=== PATIENT | female | born 1965 ===

== ENCOUNTER → 2022-12-23 | Outpatient (CLI) | payer BC ==
[2022-12-23 15:59] LABS: Basophils # (A) 0.01 X 10*3/uL (0.00-0.10); Basophils % (A) 0.3 %; Eosinophils # (A) 0.03 X 10*3/uL (0.04-0.35); Eosinophils % (A) 0.8 %; HCT 46.3 % (37.2-46.3); Immature Grans, Automated 0.3 %; Lymphocytes # (A) 2.13 X 10*3/uL (0.90-5.00); Lymphocytes % (A) 56.6 %; MCH 30.9 pg (27.0-32.0); MCHC 32.4 g/dL (32.0-37.0); MCV 95.3 fL (80.0-97.0); Mean Platelet Volume 10.8 fL (9.5-12.2); Monocytes # (A) 0.35 X 10*3/uL (0.20-1.00); Monocytes % (A) 9.3 %; NRBC Per 100 WBC 0 /100 WBCS (0.0-0.0); Neutrophils # (A) 1.23 X 10*3/uL (1.80-7.70); Neutrophils % (A) 32.7 %; Platelet Count 211 X 10*3/uL (140-440); RBC 4.86 X 10*6/uL (4.10-5.20); WBC 3.76 X 10*3/uL (4.50-10.00)
== END | disposition home or self-care (01) ==
LOC: LABPAT 10:29
PROVIDERS: ATTEND Obstetrics & Gynecology
DX: Z01.818 Encounter for other preprocedural examination (principal); N87.1 Moderate cervical dysplasia
CPT/HCPCS: 85025

== ENCOUNTER 2023-01-17 08:11 | Day surgery (SDC) | payer BC ==
[2023-01-12 14:01] VITALS: BMI 22.1
[~2023-01-17 08:11] MED LIST: Pre Op ABX Message 1 EACH MISC MISCELLANE ONE
[2023-01-17] MEDS ORDERED: ONDANSETRON 4 MG/2 ML VIAL IVP ONE (08:21)
[2023-01-17] MEDS ORDERED: DEXAMETHASONE SOD PHOSPHATE 4 MG/ML 1 ML VIAL IV ONE (08:21)
[2023-01-17] MEDS ORDERED: LACTATED RINGERS 1,000 ML IV SCH ×2 (08:21→12:00)
[2023-01-17] MEDS ORDERED: MIDAZOLAM 2 MG/2 ML VIAL IVP ONE (09:08)
[2023-01-17] MEDS ORDERED: SCOPOLAMINE 1 MG/72 HR PATCH TRANSDERM ONE (09:08)
[2023-01-17] MEDS ORDERED: LIDOCAINE 2% INJ 20 MG/ML (2 ML VIAL) ONE (09:39)
[2023-01-17] MEDS ORDERED: KETOROLAC 15 MG/ML 1 ML VIAL ONE (09:39)
[2023-01-17] MEDS ORDERED: PROPOFOL 10 MG/ML 20 ML VIAL IV ONE (09:39)
[2023-01-17] MEDS ORDERED: fentaNYL (PF) 50 MCG/ML 2 ML AMP ONE (09:39)
[2023-01-17] MEDS ORDERED: IODINE/POTASSIUM IODIDE 14 ML BOTTLE TOPICAL ONE (10:02)
[2023-01-17] MEDS ORDERED: FERRIC SUBSULFATE (MONSELS) JAR TOPICAL ONE (10:12)
--- NOTE | 2023-01-17 10:34 | P.OP ---
Date of Procedure: 01/17/23 Preoperative Diagnosis: Endocervical TONY-2 Postoperative Diagnosis: Same Procedure(s) Performed: #1. Cold knife cone Anesthesia: other (Gen. by LMA) Surgeon: Thomas Lange Estimated Blood Loss (ml): 5 IV fluids (ml): 300 Urine output (ml): 100 Pathology: other (Cervical cone) Condition: stable Disposition: PACU Operative Findings: The patient has a history of supracervical hysterectomy in the past. She did undergo colposcopy in the office demonstrating endocervical TONY-2. In the operating room, there was a small nonstaining area at the transformation zone along the entire posterior edge of the cervix. There was no ectocervical nonstaining tissue. A cone was taken to a depth of approximately 2 cm with a diameter of approximately 1.5 x 1.5 cm. All the nonstaining tissue was included in the specimen. Description of Procedure: The patient was prepped and draped in usual fashion after general anesthesia was administered by the anesthesiologist. A weighted speculum was placed on the anterior lip of the cervix grasped with a single-tooth tenaculum. The bladder was drained of approximately 100 mL of clear jerica urine. A cervical stay suture was placed from 10:00 to 8:00 at the cervical vaginal junction and from 2:00 to 4:00 at the cervical vaginal junction using 0 Vicryl were both were firmly tied down. The cervix was stained with Lugol's strong iodine and the findings are as noted above with a nonstaining area from approximately 4:00 to 8:00 along the posterior transformation zone. A sound could not be placed as the patient has undergone a previous supracervical hysterectomy. A the scalpel was utilized to incise the cervix around the outside of the transformation zone entirely to a a depth of 1.5-2 cm at which time it was then excised across its base, removed, and sent for pathological diagnoses. The base of the cone was thoroughly cauterized. Once hemostasis appeared to be adequate, Monsel solution was applied. Bleeding appeared to be minimal at that time and the stay sutures were left in place but cut short. I was recalled to the operating room several minutes later for some ongoing bleeding which was made hemostatic both with pressure and with further application of Monsel solution. Estimated blood loss for the entire case was less than 5 mL. There were no complications. All sponge, instrument, needle counts were correct. The patient tolerated the procedure well and proceeded to the recovery room in stable condition.
[2023-01-17 10:46] VITALS: TEMP 97
[2023-01-17] MEDS: HYDROmorphone 0.5 MG/0.5 ML SYRINGE IVP PRN ×4 (10:51→11:40)
[2023-01-17] MEDS ORDERED: IBUPROFEN 600 MG TAB PO PRN (11:48)
[2023-01-17] MEDS ORDERED: SIMETHICONE 80 MG CHEWABLE PO PRN (11:48)
[2023-01-17] MEDS ORDERED: ONDANSETRON 4 MG/2 ML VIAL IVP PRN (11:48)
[2023-01-17] MEDS ORDERED: Acetaminophen-Codeine 300-30mg TAB PO PRN ×2 (11:48)
[2023-01-17] MEDS ORDERED: KETOROLAC 15 MG/ML 1 ML VIAL IVP PRN (11:48)
[2023-01-17] MEDS ORDERED: diphenhydrAMINE 50 MG/ML 1 ML VIAL IVP PRN (11:48)
[2023-01-17] MEDS ORDERED: METOCLOPRAMIDE 5 MG/ML 2 ML VIAL IVP PRN (11:48)
[2023-01-17] MEDS ORDERED: fentaNYL (PF) 50 MCG/1 ML VIAL IVP ONE (11:58)
[2023-01-17] MEDS ORDERED: Acetaminophen-Codeine 300-30mg TAB PO ONE (12:42)
[2023-01-17 12:44] VITALS: RESP 16
[2023-01-17 13:14] VITALS: BP 110/63; PULSE 69
[2023-01-18] MEDS ORDERED: ACETAMINOPHEN TAB 325 MG TAB PO PRN (11:49)
== END 2023-01-17 13:56 | disposition home or self-care (01) ==
LOC: OR 08:11
PROVIDERS: ATTEND Obstetrics & Gynecology
DX: N87.0 Mild cervical dysplasia (principal); F17.210 Nicotine dependence, cigarettes, uncomplicated; K57.30 Diverticulosis of large intestine without perforation or abscess without bleeding; Z98.890 Other specified postprocedural states
CPT/HCPCS: 88307; 57520; J2250; J1100; J2405; J3010 ×2; J1885; J2704; J1170; J2001

== ENCOUNTER 2023-07-26 19:38 | Inpatient (IN) | payer BC ==
--- NOTE | 2023-07-26 20:02 | ED ---
General Adult HPI - General Source: patient, RN notes reviewed Mode of arrival: ambulatory Limitations: no limitations <Alonzo Holloway - Last Filed: 07/26/23 20:01> - General Source: RN notes reviewed, old records reviewed Limitations: no limitations, language barrier - History of Present Illness -: days(s) Location: chest (Right prostate), right (Breast) Radiation: non-radiation Severity scale (1-10): 8 Quality: stabbing Consistency: constant Improves with: none Worsens with: none Associated Symptoms: denies other symptoms <Dontrell Ahn - Last Filed: 07/28/23 22:36> - General Chief complaint: Skin/Abscess/Foreign Body Stated complaint: infection rt breast Time Seen by Provider: 07/26/23 20:01 - History of Present Illness Initial comments: 57-year-old female presents emergency Department chief complaint of right breast infection. Patient states has been bothersome for last week she had surgery 3 weeks ago. She saw her doctor who advised to come emergency department to possibly be admitted. Patient states is red swollen. (Alonzo Holloway) This is a 57-year-old female to the emergency department for evaluation of a right breast pain and infection. Patient believes she has current infection due to recent transplant exchange. This surgery was about 2 weeks ago and pain is just recently started. She does occasionally feel feverish with nausea but no vomiting. (Dontrell Ahn) - Related Data Home Medications Medication Instructions Recorded Confirmed No Known Home Medications 01/12/23 07/27/23 Allergies Allergy/AdvReac Type Severity Reaction Status Date / Time No Known Allergies Allergy Verified 07/27/23 06:53 Review of Systems ROS Other: All systems not noted in ROS Statement are negative. <Alonzo Holloway - Last Filed: 07/26/23 20:01> ROS Other: All systems not noted in ROS Statement are negative. <Dontrell Ahn - Last Filed: 07/28/23 22:36> ROS Statement: Those systems with pertinent positive or pertinent negative responses have been documented in the HPI. Past Medical History Past Medical History: No Reported History Additional Past Medical History / Comment(s): Diverticulosis. ABNORMAL PAP SMEAR History of Any Multi-Drug Resistant Organisms: None Reported Past Surgical History: Breast Surgery, Section, Hysterectomy Additional Past Surgical History / Comment(s): Past OB history: 3 vaginal deliveries followed by 2 sections. Breast reduction surgery followed by bilateral implants. Some type of abdominal surgery for intestines protruding through the abdominal wall(?hernia) later followed by an abdominoplasty. Supracervical hysterectomy for benign reasons in 2013. Past Anesthesia/Blood Transfusion Reactions: No Reported Reaction Past Psychological History: No Psychological Hx Reported Smoking Status: Former smoker Past Alcohol Use History: None Reported Past Drug Use History: None Reported - Past Family History Mother Family Medical History: No Reported History Additional Family Medical History / Comment(s): She denies family history of cancer of the breast, uterus, ovaries, or colon. Father Family Medical History: Unable to Obtain <Alonzo Holloway - Last Filed: 07/26/23 20:01> General Exam Limitations: no limitations <Alonzo Holloway - Last Filed: 07/26/23 20:01> General appearance: alert, in no apparent distress Head exam: Present: atraumatic, normocephalic, normal inspection Eye exam: Present: normal appearance, PERRL, EOMI. Absent: scleral icterus, conjunctival injection, periorbital swelling ENT exam: Present: normal exam, mucous membranes moist Neck exam: Present: normal inspection. Absent: tenderness, meningismus, lymphadenopathy Respiratory exam: Present: normal lung sounds bilaterally. Absent: respiratory distress, wheezes, rales, rhonchi, stridor Cardiovascular Exam: Present: regular rate, normal rhythm, normal heart sounds. Absent: systolic murmur, diastolic murmur, rubs, gallop, clicks GI/Abdominal exam: Present: soft, normal bowel sounds. Absent: distended, tend erness, guarding, rebound, rigid Extremities exam: Present: normal inspection, full ROM, normal capillary refill. Absent: tenderness, pedal edema, joint swelling, calf tenderness Back exam: Present: normal inspection Neurological exam: Present: alert, oriented X3, CN II-XII intact Psychiatric exam: Present: normal affect, normal mood Skin exam: Present: warm, dry, intact, normal color. Absent: rash <Dontrell Ahn - Last Filed: 07/28/23 22:36> - General Exam Comments Initial Comments: Visual Physical Exam Vital signs reviewed General: Well-appearing, nontoxic, no acute distress. Head: Normocephalic, atraumatic Eyes: PERRLA, EOMI ENT: Airway patent Chest: Nonlabored breathing Skin: No visual rash, normal skin tone Neuro: Alert and oriented 3 Musculoskeletal: No gross abnormalities (Alonzo Holloway) Course <Dontrell Ahn - Last Filed: 07/28/23 22:36> Vital Signs 07/26/23 07/27/23 19:55 01:36 Temperature 97.9 F Pulse Rate 93 74 Respiratory 20 17 Rate Blood Pressure 119/82 111/79 O2 Sat by Pulse 98 97 Oximetry - Reevaluation(s) Reevaluation #1: 07/27/23 01:20 Medical record is reviewed (Dontrell Ahn) Reevaluation #2: 07/27/23 01:20 Patient's pain here in the ER is difficult to control, patient takes 3 doses of pain medication for pain here in the ER before feeling comfortable (Dontrell Ahn) Reevaluation #3: 07/27/23 01:20 Patient informed results questions answered (Dontrell Ahn) Reevaluation #4: 07/27/23 01:21 Was pt. sent in by a medical professional or institution (, PA, HAULAGE BOSS, urgent care, hospital, or group home...) When possible be specific @ -no Did you speak to anyone other than the patient for history (EMS, parent, family, police, friend...)? What history was obtained from this source @ -no Did you review nursing and triage notes (agree or disagree)? Why? @ -agree Are old charts reviewed (outside hosp., previous admission, EMS record, old EKG, old radiological studies, urgent care reports/EKG's, group home records)? Report findings @ -yes Differential Diagnosis (chest pain, altered mental status, abdominal pain women, abdominal pain men, vaginal bleeding, weakness, fever, dyspnea, syncope, headache, dizziness, GI bleed, back pain, seizure, CVA, palpatations, mental health, musculoskeletal)? @ -prior EKG interpreted by me (3pts min.). @ -no X-rays interpreted by me (1pt min.). @ -no CT interpreted by me (1pt min.). @ -no U/S interpreted by me (1pt. min.). @ -yes What testing was considered but not performed or refused? (CT, X-rays, U/S, labs)? Why? @ -none What meds were considered but not given or refused? Why? @ -none Did you discuss the management of the patient with other professionals (professionals i.e. , PA, HAULAGE BOSS, lab, RT, psych nurse, certified social workers in health care, tool checker, teacher, welfare officer, shelter case manager)? Give summary @ -no Was smoking cessation discussed for >3mins.? @ -no Was critical care preformed (if so, how long)? @ -no Were there social determinants of health that impacted care today? How? (Homelessness, low income, unemployed, alcoholism, drug addiction, transportation, low edu. Level, literacy, decrease access to med. care, custodial, rehab)? @ -none Was there de-escalation of care discussed even if they declined (Discuss DNR or withdrawal of care, Hospice)? DNR status @ -no What co-morbidities impacted this encounter? (DM, HTN, Smoking, COPD, CAD, Cancer, CVA, ARF, Chemo, Hep., AIDS, mental health diagnosis, sleep apnea, morbid obesity)? @ -none Was patient admitted / discharged? Hospital course, mention meds given and route, prescriptions, significant lab abnormalities, going to OR and other pert inent info. @ - 57 female to the emergency department for evaluation of right breast pain, patient has breast implants recently changed. Patient does have right breast abscess will admit for IV antibiotics and surgical consultation Admitted Undiagnosed new problem with uncertain prognosis? @ -no Drug Therapy requiring intensive monitoring for toxicity (Heparin, Nitro, Insulin, Cardizem)? @ -no Were any procedures done? @ -no Diagnosis/symptom? @ -Right breast abscess Acute, or Chronic, or Acute on Chronic? @ -Acute Uncomplicated (without systemic symptoms) or Complicated (systemic symptoms)? @ -Complicated Side effects of treatment? @ -no Exacerbation, Progression, or Severe Exacerbation? @ -exacerbation Poses a threat to life or bodily function? How? (Chest pain, USA, GA, pneumonia, PE, COPD, DKA, ARF, appy, cholecystitis, CVA, Diverticulitis, Homicidal, Suicidal, threat to staff... and all critical care pts) @ -yes with infection and sepsis (Dontrell Ahn) - Consultations Consultation #1: Spoke with Dr. Waddell will admit this patient (Dontrell Ahn) Medical Decision Making <Alonzo Holloway - Last Filed: 07/26/23 20:01> - Lab Data Result diagrams: 07/28/23 04:06 07/28/23 04:06 - Radiology Data Radiology results: report reviewed (Ultrasound right breast positive abscess), image reviewed <Dontrell Ahn - Last Filed: 07/28/23 22:36> - Medical Decision Making I completed the quick note portion of this chart signed Alonzo Holloway PA-C (Alonzo Holloway) 57 female with right breast implant infection, patient will be admitted for IV antibiotics and surgical evaluation (Dontrell Ahn) - Lab Data Lab Results 07/26/23 07/26/23 07/26/23 Range/Units 22:19 22:19 22:19 WBC 3.4 L (3.8-10.6) k/uL RBC 4.43 (3.80-5.40) m/uL Hgb 14.1 (11.4-16.0) gm/dL Hct 41.4 (34.0-46.0) % MCV 93.5 (80.0-100.0) fL MCH 31.9 (25.0-35.0) pg MCHC 34.1 (31.0-37.0) g/dL RDW 12.4 (11.5-15.5) % Plt Count 281 (150-450) k/uL MPV 7.7 Neutrophils % 44 % Lymphocytes % 45 % Monocytes % 8 % Eosinophils % 1 % Basophils % 0 % Neutrophils # 1.5 (1.3-7.7) k/uL Lymphocytes # 1.5 (1.0-4.8) k/uL Monocytes # 0.3 (0-1.0) k/uL Eosinophils # 0.1 (0-0.7) k/uL Basophils # 0.0 (0-0.2) k/uL Sodium 139 (137-145) mmol/L Potassium 3.7 (3.5-5.1) mmol/L Chloride 103 (98-107) mmol/L Carbon Dioxide 25 (22-30) mmol/L Anion Gap 11 mmol/L BUN 12 (7-17) mg/dL Creatinine 0.43 L (0.52-1.04) mg/dL Est GFR (CKD-EPI)AfAm >90 (>60 ml/min/1.73 sqM) Est GFR (CKD-EPI)NonAf >90 (>60 ml/min/1.73 sqM) Glucose 91 (74-99) mg/dL Plasma Lactic Acid Deepak 0.9 (0.7-2.0) mmol/L Calcium 9.4 (8.4-10.2) mg/dL Phosphorus (2.5-4.5) mg/dL Magnesium (1.6-2.3) mg/dL Total Bilirubin 0.3 (0.2-1.3) mg/dL AST 23 (14-36) U/L ALT 19 (4-34) U/L Alkaline Phosphatase 66 (38-126) U/L Total Protein 8.0 (6.3-8.2) g/dL Albumin 4.2 (3.5-5.0) g/dL 07/26/23 Range/Units 23:13 WBC (3.8-10.6) k/uL RBC (3.80-5.40) m/uL Hgb (11.4-16.0) gm/dL Hct (34.0-46.0) % MCV (80.0-100.0) fL MCH (25.0-35.0) pg MCHC (31.0-37.0) g/dL RDW (11.5-15.5) % Plt Count (150-450) k/uL MPV Neutrophils % % Lymphocytes % % Monocytes % % Eosinophils % % Basophils % % Neutrophils # (1.3-7.7) k/uL Lymphocytes # (1.0-4.8) k/uL Monocytes # (0-1.0) k/uL Eosinophils # (0-0.7) k/uL Basophils # (0-0.2) k/uL Sodium (137-145) mmol/L Potassium (3.5-5.1) mmol/L Chloride (98-107) mmol/L Carbon Dioxide (22-30) mmol/L Anion Gap mmol/L BUN (7-17) mg/dL Creatinine (0.52-1.04) mg/dL Est GFR (CKD-EPI)AfAm (>60 ml/min/1.73 sqM) Est GFR (CKD-EPI)NonAf (>60 ml/min/1.73 sqM) Glucose (74-99) mg/dL Plasma Lactic Acid Deepak (0.7-2.0) mmol/L Calcium (8.4-10.2) mg/dL Phosphorus 4.6 H (2.5-4.5) mg/dL Magnesium 2.1 (1.6-2.3) mg/dL Total Bilirubin (0.2-1.3) mg/dL AST (14-36) U/L ALT (4-34) U/L Alkaline Phosphatase (38-126) U/L Total Protein (6.3-8.2) g/dL Albumin (3.5-5.0) g/dL Disposition <Alonzo Holloway - Last Filed: 07/26/23 20:01> Is patient prescribed a controlled substance at d/c from ED?: No Time of Disposition: 00:30 <Dontrell Ahn - Last Filed: 07/28/23 22:36> Clinical Impression: Abscess of right breast, Infection of breast implant, Breast pain, right, Cellulitis of breast Disposition: ADMITTED IP TO THIS HOSP Condition: Good
[2023-07-26] MEDS ORDERED: MORPHINE SULFATE 4 MG/ML SYRINGE IV STA (22:22)
[2023-07-26] MEDS ORDERED: SODIUM CHLORIDE 0.9% 1,000 ML IV STA (22:22)
[2023-07-26 22:35] LABS: Basophils % (A) 0 %; Eosinophils # (A) 0.1 k/uL (0-0.7); Eosinophils % (A) 1 %; HCT 41.4 % (34.0-46.0); HGB 14.1 gm/dL (11.4-16.0); Lymphocytes # (A) 1.5 k/uL (1.0-4.8); Lymphocytes % (A) 45 %; MCH 31.9 pg (25.0-35.0); MCHC 34.1 g/dL (31.0-37.0); MCV 93.5 fL (80.0-100.0); Mean Platelet Volume 7.7; Monocytes # (A) 0.3 k/uL (0-1.0); Monocytes % (A) 8 %; Neutrophils # (A) 1.5 k/uL (1.3-7.7); Neutrophils % (A) 44 %; Platelet Count 281 k/uL (150-450); RBC 4.43 m/uL (3.80-5.40); RDW 12.4 % (11.5-15.5); WBC 3.4 k/uL (3.8-10.6)
[2023-07-26 22:47] LABS: ALT 19 U/L (4-34); AST 23 U/L (14-36); African American GFR (CKD) >90 (>60 ml/min/1.73 sqM); Albumin 4.2 g/dL (3.5-5.0); Alkaline Phosphatase 66 U/L (38-126); Anion Gap 11 mmol/L; Blood Urea Nitrogen 12 mg/dL (7-17); Calcium 9.4 mg/dL (8.4-10.2); Carbon Dioxide 25 mmol/L (22-30); Chloride 103 mmol/L (98-107); Glucose 91 mg/dL (74-99); Non-African American GFR(CKD) >90 (>60 ml/min/1.73 sqM); Potassium 3.7 mmol/L (3.5-5.1); Sodium 139 mmol/L (137-145); Total Bilirubin 0.3 mg/dL (0.2-1.3)
[2023-07-26] MEDS ORDERED: CLINDAMYCIN 900 MG in DEXTROSE 5% IN WATER 50 ML IVPB ONE ×2 (23:15)
[2023-07-26 23:43] LABS: Magnesium 2.1 mg/dL (1.6-2.3); Phosphorus 4.6 mg/dL (2.5-4.5)
[2023-07-27] MEDS ORDERED: HYDROmorphone 1 MG/ML 1 ML SYRINGE IVP STA (00:28)
[2023-07-27] MEDS ORDERED: ONDANSETRON 4 MG/2 ML VIAL IVP PRN (00:30)
[2023-07-27] MEDS ORDERED: NALOXONE 0.4 MG/ML 1 ML VIAL IV PRN (00:30)
--- NOTE | 2023-07-27 01:17 | US ---
EXAM: US Right Breast, Limited CLINICAL HISTORY: ITS.REASON US Reason: abscess TECHNIQUE: Limited real time ultrasound of the right breast with image documentation, including axilla when performed. COMPARISON: None FINDINGS/ IMPRESSION: 1. Small area of hypoechogenicity in the subcutaneous tissues of the right breast at the 5 o'clock position, measuring approximately 0.6 x 0.7 x 0.9 cm. Question small abscess or postoperative seroma. 2. Slight hyperemia seen in the right breast soft tissues, where as no hypervascularity was noted in the left breast soft tissues taken for comparison. Question cellulitis.
[2023-07-27] MEDS: SODIUM CHLORIDE 0.9% 1,000 ML IV SCH ×2 (01:25→13:57)
[2023-07-27] MEDS: HYDROmorphone 1 MG/ML 1 ML SYRINGE IVP PRN ×4 (04:32→17:48)
[2023-07-27] MEDS: AMPICILLIN-SULBACTAM 3 GM in SODIUM CHLORIDE 0.9% 100 ML IVPB SCH ×3 (11:26→23:46)
[2023-07-27] MEDS: ENOXAPARIN 40 MG/0.4 ML SYRINGE SQ SCH (11:27)
--- NOTE | 2023-07-27 13:59 | P.GSHP ---
History of Present Illness H&P Date: 07/27/23 Chief Complaint: Right breast infection [place] is a 57-year-old female admitted to the emergency department with a complaint of swelling and pain in the right breast. She states on July 04 she underwent a bilateral implant removal with new implant placement in [facility]. She states that the implants were silicone in nature. She did not have a postoperative appointment. She states one was scheduled but she did not know the time and then came back to [place] where she lives. Since being back in [place] approximately 2 weeks ago she noticed swelling and redness of the right breast. She called the surgeon in [place] and was told to come in for an appointment however she stated she could not because she lives in [place]. She subsequently saw her primary care doctor and was sent to the emergency room. The patient was noted to have a white count of 3.4 and hemoglobin of 14.1. She was afebrile in the emergency department. She is complaining of pain in the right breast and erythema which she states is decreased and she has been given IV antibiotics. She had a right breast ultrasound which revealed a 0.6 x 0.9 cm fluid collection seroma versus abscess. Past surgical history: Bilateral breast implants 15 years ago Questionable hernia repair Hysterectomy Recent removal of bilateral breast implants with replacement on 07/04/2023 in [facility] Medical history: Diverticular disease ALLERGIES: Negative - Constitutional Constitutional: Reports chills - EENT Eyes: denies blurred vision, denies pain - Breasts Breasts: bilateral: as per HPI - Cardiovascular Cardiovascular: Denies chest pain, Denies shortness of breath - Respiratory Respiratory: Denies cough, Denies 7 - Gastrointestinal Gastrointestinal: Reports as per HPI - Genitourinary (Female) Genitourinary: Reports as per HPI - Menstruation Menstruation: Reports post hysterectomy - Integumentary Integumentary: Reports as per HPI - Psychiatric Psychiatric: Denies anxiety, Denies depression - Allergic/Immunologic Allergic/Immunologic: Reports as per HPI Past Medical History Past Medical History: No Reported History Additional Past Medical History / Comment(s): Diverticulosis. ABNORMAL PAP SMEAR History of Any Multi-Drug Resistant Organisms: None Reported Past Surgical History: Breast Surgery, Section, Hysterectomy Additional Past Surgical History / Comment(s): Past OB history: 3 vaginal deliveries followed by 2 sections. Breast reduction surgery followed by bilateral implants. Some type of abdominal surgery for intestines protruding through the abdominal wall(?hernia) later followed by an abdominoplasty. Supracervical hysterectomy for benign reasons in 2013. Past Anesthesia/Blood Transfusion Reactions: No Reported Reaction Past Psychological History: No Psychological Hx Reported Smoking Status: Former smoker Past Alcohol Use History: None Reported Past Drug Use History: None Reported - Past Family History Mother Family Medical History: No Reported History Additional Family Medical History / Comment(s): She denies family history of cancer of the breast, uterus, ovaries, or colon. Father Family Medical History: Unable to Obtain Medications and Allergies Home Medications Medication Instructions Recorded Confirmed Type No Known Home Medications 01/12/23 07/27/23 History Allergies Allergy/AdvReac Type Severity Reaction Status Date / Time No Known Allergies Allergy Verified 07/27/23 06:53 Surgical - Exam Vital Signs Temp Pulse Resp BP Pulse Ox 97.9 F 93 20 119/82 98 07/26/23 19:55 07/26/23 19:55 07/26/23 19:55 07/26/23 19:55 07/26/23 19:55 - General moderate distress - Eyes normal ocular movement - Neck trachea midline - Respiratory normal respiratory effort, clear to auscultation - Cardiovascular Rhythm: regular Heart Sounds: normal: S1, S2 - Integumentary Incision right breast with erythema of the medial aspect and mild swelling Incision left breast clean and dry - Neurologic no disoriented, no combative - Psychiatric oriented to time, oriented to person, oriented to place, speech is normal, me andrea intact Breast examination: I lateral recent implant placement The left breast incision is clean and dry with no evidence of erythema Right breast: Mild tenderness and swelling in the inferior medial aspect with some mild swelling of the incision Results Ultrasound results reviewed; 0.6 x 0.9 cm fluid collection - Labs 07/26/23 22:19 07/26/23 22:19 Abnormal Lab Results - Last 24 Hours (Table) 07/26/23 07/26/23 07/26/23 Range/Units 22:19 22:19 23:13 WBC 3.4 L (3.8-10.6) k/uL Creatinine 0.43 L (0.52-1.04) mg/dL Phosphorus 4.6 H (2.5-4.5) mg/dL Diabetes panel 07/26/23 Range/Units 22:19 Sodium 139 (137-145) mmol/L Potassium 3.7 (3.5-5.1) mmol/L Chloride 103 (98-107) mmol/L Carbon Dioxide 25 (22-30) mmol/L BUN 12 (7-17) mg/dL Creatinine 0.43 L (0.52-1.04) mg/dL Glucose 91 (74-99) mg/dL Calcium 9.4 (8.4-10.2) mg/dL AST 23 (14-36) U/L ALT 19 (4-34) U/L Alkaline Phosphatase 66 (38-126) U/L Total Protein 8.0 (6.3-8.2) g/dL Albumin 4.2 (3.5-5.0) g/dL Calcium panel 07/26/23 07/26/23 Range/Units 22:19 23:13 Calcium 9.4 (8.4-10.2) mg/dL Phosphorus 4.6 H (2.5-4.5) mg/dL Albumin 4.2 (3.5-5.0) g/dL Pituitary panel 07/26/23 Range/Units 22:19 Sodium 139 (137-145) mmol/L Potassium 3.7 (3.5-5.1) mmol/L Chloride 103 (98-107) mmol/L Carbon Dioxide 25 (22-30) mmol/L BUN 12 (7-17) mg/dL Creatinine 0.43 L (0.52-1.04) mg/dL Glucose 91 (74-99) mg/dL Calcium 9.4 (8.4-10.2) mg/dL Adrenal panel 07/26/23 Range/Units 22:19 Sodium 139 (137-145) mmol/L Potassium 3.7 (3.5-5.1) mmol/L Chloride 103 (98-107) mmol/L Carbon Dioxide 25 (22-30) mmol/L BUN 12 (7-17) mg/dL Creatinine 0.43 L (0.52-1.04) mg/dL Glucose 91 (74-99) mg/dL Calcium 9.4 (8.4-10.2) mg/dL Total Bilirubin 0.3 (0.2-1.3) mg/dL AST 23 (14-36) U/L ALT 19 (4-34) U/L Alkaline Phosphatase 66 (38-126) U/L Total Protein 8.0 (6.3-8.2) g/dL Albumin 4.2 (3.5-5.0) g/dL Assessment and Plan Assessment: Impression: Seroma/abscess right breast Cellulitis right breast Plan: We have discussed ultrasound guided aspiration of the fluid and the patient has refused at this time therefore she'll be treated with IV antibiotic therapy with serial evaluation CC: Dr. Vic Lozano
--- NOTE | 2023-07-27 22:22 | P.HPIM ---
History of Present Illness H&P Date: 07/27/23 Chief Complaint: Right breast infection This is a pleasant 57-year-old Cuban-speaking patient is originally from [place]. Patient otherwise has no medical history. Patient had bilateral silicone breast implants to 15 years ago. Last when she went down to [place] to have silicone replacement in the right breast. Then she started developing increasing pain in the right breast. Describes some fever and chills at home. Brought in for the same. Ultrasound of the breast questionable abscess versus seroma. Appetite fair. Review of systems: GEN.: [place] feverish and chills EYES: None HEENT: None NECK: None RESPIRATORY: None CARDIOVASCULAR: None GASTROINTESTINAL: None GENITOURINARY: None MUSCULOSKELETAL: None LYMPHATICS: None HEMATOLOGICAL: None PSYCHIATRY: None NEUROLOGICAL: None Past medical history to include: Colonic diverticulosis. Abdominal wall hernia repair. Breast reduction surgery followed by bilateral implants. Social history: . 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 Krish nguyễn VITAL SIGNS: 97.9, 93, 20, 119/82, 98% room air GENERAL: BMI 21.3, reclining bed awake comfortable. EYES: Pupils equal. Conjunctiva normal. HEENT: External appearance of nose and ears normal, oral cavity grossly normal. NECK: JVD not raised; masses not palpable. HEART: First and second heart sounds are normal; no edema. LUNGS: Respiratory rate normal; clear to auscultation. ABDOMEN: Soft, nontender, liver spleen not palpable, no masses palpable. PSYCH: Alert and oriented x3; mood and affect normal. MUSCULOSKELETAL:No Clubbing/cyanosis;muscles-grossly intact NEUROLOGICAL: Cranial nerves grossly intact; no facial asymmetry, power and sensation grossly intact. LYMPHATICS: No lymph nodes palpable in the axilla and neck Right breast: Tender the inferior side. INVESTIGATIONS, reviewed in the clinical context: White count 3.4 hemoglobin 14.1 platelets 281 potassium 3.7 creatinine 0.43 Right breast ultrasound: Seroma versus a small abscess inferiorly Assessment and plan: -Right breast infection seroma versus abscess in a patient who recently had a silicone implant replaced in [place]. Dr. Gill nguyễn discussed with the patient about a possible needle aspiration. Due to the risk of losing the implant patient does not want the same. IV Unasyn. Pain control Follow with Dr. Gill-Krish ball -Mild leukopenia likely from infection Discussed with the patient. Given the complexity and severity of patient's condition expect the patient to be in the hospital at least for 2 overnights patient will need IV antibiotics as patient does not want it to get drained currently Past Medical History Past Medical History: No Reported History Additional Past Medical History / Comment(s): Diverticulosis. ABNORMAL PAP SMEAR History of Any Multi-Drug Resistant Organisms: None Reported Past Surgical History: Breast Surgery, Section, Hysterectomy Additional Past Surgical History / Comment(s): Past OB history: 3 vaginal deliveries followed by 2 sections. Breast reduction surgery followed by bilateral implants. Some type of abdominal surgery for intestines protruding through the abdominal wall(?hernia) later followed by an abdominoplasty. Supracervical hysterectomy for benign reasons in 2012. Past Anesthesia/Blood Transfusion Reactions: No Reported Reaction Past Psychological History: No Psychological Hx Reported Smoking Status: Former smoker Past Alcohol Use History: None Reported Past Drug Use History: None Reported - Past Family History Mother Family Medical History: No Reported History Additional Family Medical History / Comment(s): She denies family history of cancer of the breast, uterus, ovaries, or colon. Father Family Medical History: Unable to Obtain Medications and Allergies Home Medications Medication Instructions Recorded Confirmed Type No Known Home Medications 01/12/23 07/27/23 History Allergies Allergy/AdvReac Type Severity Reaction Status Date / Time No Known Allergies Allergy Verified 07/27/23 06:53 Physical Exam Vitals: Vital Signs Temp Pulse Pulse Resp BP BP Pulse Ox 07/27/23 07:00 98.0 F 74 16 97/64 98 07/27/23 02:00 15 07/27/23 01:58 97.4 F L 72 15 113/72 100 07/27/23 01:36 74 17 111/79 97 07/26/23 19:55 97.9 F 93 20 119/82 98 Intake and Output 07/26/23 07/27/23 07/27/23 22:59 06:59 14:59 Other: # Voids 2 Weight 54.431 kg 54.431 kg Results CBC & Chem 7: 07/26/23 22:19 07/26/23 22:19 Labs: Abnormal Lab Results - Last 24 Hours (Table) 07/26/23 07/26/23 07/26/23 Range/Units 22:19 22:19 23:13 WBC 3.4 L (3.8-10.6) k/uL Creatinine 0.43 L (0.52-1.04) mg/dL Phosphorus 4.6 H (2.5-4.5) mg/dL Thrombosis Risk Factor Assmnt - Choose All That Apply Any of the Below Risk Factors Present?: Yes Each Factor Represents 1 point: Age 41-60 years Other Risk Factors: No Other congenital or acquired thrombophilia - If yes, enter type in comment: No Thrombosis Risk Factor Assessment Total Risk Factor Score: 1 Thrombosis Risk Factor Assessment Level: Low Risk
[2023-07-28] MEDS: HYDROmorphone 1 MG/ML 1 ML SYRINGE IVP PRN ×4 (04:23→20:51)
[2023-07-28] MEDS: AMPICILLIN-SULBACTAM 3 GM in SODIUM CHLORIDE 0.9% 100 ML IVPB SCH ×4 (04:26→23:29)
[2023-07-28] MEDS: SODIUM CHLORIDE 0.9% 1,000 ML IV SCH ×2 (04:26→16:41)
--- NOTE | 2023-07-28 08:54 | P.PN ---
Subjective Progress Note Date: 07/28/23 Principal diagnosis: Right breast infection The patient presented with swelling and erythema of the right breast following a right breast implant removal and new implant placement July 04 in [facility]. The patient was seen and recommended to have aspiration of the f luid collection however declined this. The patient since yesterday has had spontaneous drainage of fluid from the inferior aspect of the right breast incision. The erythema has decreased. The patient's pain has decreased. Objective - Vital Signs Vital signs: Vital Signs Temp 98.2 F 07/28/23 07:58 Pulse 81 07/28/23 07:58 Resp 14 07/28/23 07:58 BP 103/74 07/28/23 07:58 Pulse Ox 96 07/28/23 07:58 FiO2 Intake & Output 07/27/23 07/28/23 07/28/23 18:59 06:59 18:59 Other: # Voids 1 2 - Constitutional General appearance: Present: cooperative - EENT Eyes: Present: EOMI ENT: Present: hearing grossly normal - Neck Neck: Present: normal ROM - Respiratory Respiratory: bilateral: CTA - Cardiovascular Heart sounds: normal: S1, S2 - Integumentary Integumentary Comment(s): Decreased erythema right breast, decreased seroma/fluid There is a pinpoint opening in the mid aspect of the inferior incision through which fluid has drained - Labs CBC & Chem 7: 07/26/23 22:19 07/26/23 22:19 Labs: Microbiology - Last 24 Hours (Table) 07/26/23 22:19 Blood Culture - Preliminary Blood 07/26/23 22:19 Blood Culture - Preliminary Blood Assessment and Plan Assessment: Impression: Seroma/abscess right breast; spontaneous drainage Cellulitis right breast improved Plan: Obtain cultures from fluid which is drained Continue antibiotics Obtain operative report from plastic surgeon in [place] CC: Dr. Vic Lozano
[2023-07-28 09:17] LABS: Basophils # (A) 0.01 X 10*3/uL (0.00-0.10); Basophils % (A) 0.3 %; Eosinophils # (A) 0.04 X 10*3/uL (0.04-0.35); Eosinophils % (A) 1.3 %; HCT 34.3 % (37.2-46.3); HGB 11.6 g/dL (12.0-15.0); Immature Grans, Automated 0 %; Lymphocytes % (A) 49.2 %; MCH 31.2 pg (27.0-32.0); MCHC 33.8 g/dL (32.0-37.0); MCV 92.2 FL (80.0-97.0); Mean Platelet Volume 9.9 FL (9.5-12.2); Monocytes # (A) 0.34 X 10*3/uL (0.20-1.00); Monocytes % (A) 11.1 %; NRBC Per 100 WBC 0 X 10*3/uL (0.00-0.01); Neutrophils # (A) 1.16 X 10*3/uL (1.80-7.70); Neutrophils % (A) 38.1 %; Platelet Count 226 X 10*3/uL (140-440); RBC 3.72 X 10*6/uL (4.10-5.20); RDW 12.5 % (11.5-14.5); WBC 3.05 X 10*3/uL (4.50-10.00)
[2023-07-28] MEDS: ENOXAPARIN 40 MG/0.4 ML SYRINGE SQ SCH (09:42)
[2023-07-28 11:47] LABS: ALT 14 U/L (8-44); AST 12 U/L (13-35); Albumin 3.5 g/dL (3.8-4.9); Albumin/Globulin Ratio 1.35 Ratio (1.60-3.17); Alkaline Phosphatase 57 U/L (41-126); Blood Urea Nitrogen 10.8 mg/dL (9.0-27.0); Carbon Dioxide 26.8 mmol/L (21.6-31.8); Chloride 101 mmol/L (96-109); Globulin 2.6 g/dL (1.6-3.3); Glucose 80 mg/dL (70-110); Phosphorus 4.4 mg/dL (2.4-5.1); Potassium 3.2 mmol/L (3.5-5.5); Sodium 140 mmol/L (135-145); Total Bilirubin 0.2 mg/dL (0.3-1.2); Total Protein 6.1 g/dL (6.2-8.2)
[2023-07-28] MEDS: ACETAMINOPHEN TAB 325 MG TAB PO PRN ×2 (14:52→23:42)
[2023-07-28] MEDS ORDERED: HYDROmorphone 1 MG/ML 1 ML SYRINGE IVP STA (15:40)
--- NOTE | 2023-07-28 18:32 | P.PN ---
Progress Note - Text Progress Note Date: 07/28/23 Chief Complaint: Right breast infection This is a pleasant 57-year-old Gibraltarian-speaking patient is originally from [place]. Patient otherwise has no medical history. Patient had bilateral silicone breast implants to 15 years ago. Last when she went down to [place] to have silicone replacement in the right breast. Then she started developing increasing pain in the right breast. Describes some fever and chills at home. Brought in for the same. Ultrasound of the breast questionable abscess versus seroma. Appetite fair. July 28: Patient getting IV Dilaudid. Using warm and cold compress on the right breast. Some drainage. Remains on IV Unasyn. Does not like hospital food. Being followed by Dr. Yvan nguyễn. Active Medications Acetaminophen (Acetaminophen Tab 325 Mg Tab) 650 mg PO Q6HR PRN PRN Reason: Mild Pain or Fever > 100.5 Last Admin: 07/28/23 14:52 Dose: 650 mg Enoxaparin Sodium (Enoxaparin 40 Mg/0.4 Ml Syringe) 40 mg SQ DAILY [facility] Last Admin: 07/28/23 09:42 Dose: 40 mg Hydromorphone HCl (Hydromorphone 1 Mg/Ml 1 Ml Syringe) 1 mg IVP Q4HR PRN PRN Reason: Pain Last Admin: 07/28/23 14:29 Dose: 1 mg Sodium Chloride (Saline 0.9%) 1,000 mls @ 75 mls/hr IV .[id number] [facility] Last Admin: 07/28/23 16:41 Dose: Not Given Ampicillin Sodium/Sulbactam (Sodium 3 gm/ Sodium Chloride) 100 mls @ 200 mls/hr IVPB Q6HR [facility]; Protocol Last Admin: 07/28/23 14:29 Dose: 200 mls/hr Naloxone HCl (Naloxone 0.4 Mg/Ml 1 Ml Vial) 0.2 mg IV Q2M PRN PRN Reason: Opioid Reversal Ondansetron HCl (Ondansetron 4 Mg/2 Ml Vial) 4 mg IVP Q8HR PRN PRN Reason: Nausea And Vomiting Last Admin: 07/27/23 02:18 Dose: 4 mg Past medical history to include: Colonic diverticulosis. Abdominal wall hernia repair. Breast reduction surgery followed by bilateral implants. Social history: . 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 Krish nguyễn VITAL SIGNS: 98.1, 81, 14, 99/867, 100% room air GENERAL: Reclining in bed, awake EYES: Pupils equal. Conjunctiva normal. HEENT: External appearance of nose and ears normal, oral cavity grossly normal. NECK: JVD not raised; masses not palpable. HEART: First and second heart sounds are normal; no edema. LUNGS: Respiratory rate normal; clear to auscultation. ABDOMEN: Soft, nontender, liver spleen not palpable, no masses palpable. PSYCH: Alert and oriented x3; mood and affect normal. MUSCULOSKELETAL:No Clubbing/cyanosis;muscles-grossly intact Right breast: Tender the inferior quadrant INVESTIGATIONS, reviewed in the clinical context: July 28: White count 3.05 hemoglobin 11.6 platelets 226and 3.2 creatinine 0.4 White count 3.4 hemoglobin 14.1 platelets 281 potassium 3.7 creatinine 0.43 Right breast ultrasound: Seroma versus a small abscess inferiorly Assessment and plan: -Right breast infection seroma versus abscess in a patient who recently had a silicone implant replaced in [place]. Dr. Gill nguyễn discussed with the patient about a possible needle aspiration. Due to the risk of losing the implant patient does not want the same. IV Unasyn. Pain control Follow with Dr. Yvan nguyễn -Mild leukopenia likely from infection Continue IV Unasyn. Warm and cold compresses. Increase activity as tolerated.
[2023-07-29] MEDS: HYDROmorphone 1 MG/ML 1 ML SYRINGE IVP PRN ×6 (00:45→22:56)
[2023-07-29] MEDS: SODIUM CHLORIDE 0.9% 1,000 ML IV SCH ×2 (04:49→21:01)
[2023-07-29] MEDS: AMPICILLIN-SULBACTAM 3 GM in SODIUM CHLORIDE 0.9% 100 ML IVPB SCH ×3 (06:40→18:33)
[2023-07-29] MEDS: ENOXAPARIN 40 MG/0.4 ML SYRINGE SQ SCH (09:21)
[2023-07-29] MEDS ORDERED: LACTULOSE 20 GM/30 ML CUP PO ONE (16:24)
--- NOTE | 2023-07-29 16:27 | P.PN ---
Progress Note - Text Progress Note Date: 07/29/23 Chief Complaint: Right breast infection This is a pleasant 57-year-old Tuvaluan-speaking patient is originally from [place]. Patient otherwise has no medical history. Patient had bilateral silicone breast implants to 15 years ago. Last when she went down to [place] to have silicone replacement in the right breast. Then she started developing increasing pain in the right breast. Describes some fever and chills at home. Brought in for the same. Ultrasound of the breast questionable abscess versus seroma. Appetite fair. July 28: Patient getting IV Dilaudid. Using warm and cold compress on the right breast. Some drainage. Remains on IV Unasyn. Does not like hospital food. Being followed by Dr. Yvan nguyễn. July 29: Patient is getting pain medications were right breast pain. She she tells the pain is better. Still having significant drainage in the gauze. Able to squeeze the area better. Patient seen in the presence of the nurse. No fever no chills. Does not like hospital food. No bowel movement. Metamucil. Lactulose. Patient encouraged to walk in the hallway. Discussed with surgery: Patient to follow-up with plastic surgeon, Dr. Acosta Active Medications Acetaminophen (Acetaminophen Tab 325 Mg Tab) 650 mg PO Q6HR PRN PRN Reason: Mild Pain or Fever > 100.5 Last Admin: 07/28/23 23:42 Dose: 650 mg Enoxaparin Sodium (Enoxaparin 40 Mg/0.4 Ml Syringe) 40 mg SQ DAILY [facility] Last Admin: 07/29/23 09:21 Dose: 40 mg Hydromorphone HCl (Hydromorphone 1 Mg/Ml 1 Ml Syringe) 1 mg IVP Q4HR PRN PRN Reason: Pain Last Admin: 07/29/23 14:58 Dose: 1 mg Sodium Chloride (Saline 0.9%) 1,000 mls @ 75 mls/hr IV .[id number] [facility] Last Admin: 07/29/23 04:49 Dose: Not Given Ampicillin Sodium/Sulbactam (Sodium 3 gm/ Sodium Chloride) 100 mls @ 200 mls/hr IVPB Q6HR [facility]; Protocol Last Admin: 07/29/23 12:32 Dose: 200 mls/hr Lactulose (Lactulose 20 Gm/30 Ml Cup) 20 gm PO ONCE ONE Stop: 07/29/23 16:25 Naloxone HCl (Naloxone 0.4 Mg/Ml 1 Ml Vial) 0.2 mg IV Q2M PRN PRN Reason: Opioid Reversal Ondansetron HCl (Ondansetron 4 Mg/2 Ml Vial) 4 mg IVP Q8HR PRN PRN Reason: Nausea And Vomiting Last Admin: 07/27/23 02:18 Dose: 4 mg Psyllium Hydrophilic Mucilloid (Psyllium Husk 100% 6 Gm Packet) 6 gm PO DAILY [facility] Past medical history to include: Colonic diverticulosis. Abdominal wall hernia repair. Breast reduction surgery followed by bilateral implants. Social history: . 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 Conjunctiva normal. HEENT: External appearance of nose and ears normal, oral cavity grossly normal. NECK: JVD not raised; masses not palpable. HEART: First and second heart sounds are normal; no edema. LUNGS: Respiratory rate normal; clear to auscultation. ABDOMEN: Soft, nontender, liver spleen not palpable, no masses palpable. PSYCH: Alert and oriented x3; mood and affect normal. MUSCULOSKELETAL:No Clubbing/cyanosis;muscles-grossly intact Right breast: Decreased Tender the inferior quadrant INVESTIGATIONS, reviewed in the clinical context: July 28: White count 3.05 hemoglobin 11.6 platelets 226and 3.2 creatinine 0.4 White count 3.4 hemoglobin 14.1 platelets 281 potassium 3.7 creatinine 0.43 Right breast ultrasound: Seroma versus a small abscess inferiorly Assessment and plan: -Right breast infection seroma versus abscess in a patient who recently had a silicone implant replaced in [place]. Dr. Gill nguyễn discussed with the patient about a possible needle aspiration. Due to the risk of losing the implant patient does not want the same.: Slow improvement IV Unasyn. Pain control Follow with Dr. Yvan oropeza-gudeliaay to [place] tomorrow Patient to follow up with plastic surgeon Dr. Acosta -Mild leukopenia likely from infection Continue IV Unasyn. Warm and cold compresses. Increase activity . Discussed
[2023-07-29] MEDS: PSYLLIUM HUSK 100% 6 GM PACKET PO SCH (16:42)
[2023-07-30 04:34] LABS: Basophils % (A) 0 %; Eosinophils # (A) 0.1 k/uL (0-0.7); Eosinophils % (A) 2 %; HCT 37.5 % (34.0-46.0); Lymphocytes # (A) 1.4 k/uL (1.0-4.8); Lymphocytes % (A) 41 %; MCH 31.3 pg (25.0-35.0); MCHC 31.9 g/dL (31.0-37.0); MCV 98.1 fL (80.0-100.0); Mean Platelet Volume 7.7; Monocytes # (A) 0.4 k/uL (0-1.0); Monocytes % (A) 10 %; Neutrophils # (A) 1.5 k/uL (1.3-7.7); Neutrophils % (A) 44 %; Platelet Count 222 k/uL (150-450); RBC 3.82 m/uL (3.80-5.40); RDW 12.7 % (11.5-15.5); WBC 3.4 k/uL (3.8-10.6)
[2023-07-30 05:02] LABS: African American GFR (CKD) >90 (>60 ml/min/1.73 sqM); Anion Gap 9 mmol/L; Blood Urea Nitrogen 14 mg/dL (7-17); Calcium 8.7 mg/dL (8.4-10.2); Carbon Dioxide 24 mmol/L (22-30); Chloride 101 mmol/L (98-107); Glucose 83 mg/dL (74-99); Non-African American GFR(CKD) >90 (>60 ml/min/1.73 sqM); Potassium 3.7 mmol/L (3.5-5.1); Sodium 134 mmol/L (137-145)
[2023-07-30] MEDS: AMPICILLIN-SULBACTAM 3 GM in SODIUM CHLORIDE 0.9% 100 ML IVPB SCH ×4 (06:00→11:07)
[2023-07-30] MEDS: HYDROmorphone 1 MG/ML 1 ML SYRINGE IVP PRN ×2 (06:43→11:07)
[2023-07-30 07:50] VITALS: RESP 18
[2023-07-30] MEDS: PSYLLIUM HUSK 100% 6 GM PACKET PO SCH (10:15)
[2023-07-30] MEDS: ENOXAPARIN 40 MG/0.4 ML SYRINGE SQ SCH (10:15)
[2023-07-30] MEDS: SODIUM CHLORIDE 0.9% 1,000 ML IV SCH (10:15)
[2023-07-30 14:23] VITALS: BP 121/78; PULSE 89; TEMP 98.2
[2023-07-30] MEDS ORDERED: NAPROXEN 250 MG TAB PO SCH (16:00)
--- NOTE | 2023-08-01 14:55 | P.DS ---
Providers Date of admission: 07/27/23 11:37 Expected date of discharge: 07/30/23 Attending physician: Donavan Waddell Consults: 07/27/23 00:30 Consult Physician Routine Consulting Provider: Danielle Sams Consult Reason/Comments: abscess Do you want consulting provider notified?: Yes Primary care physician: Danial Ho [facility] Course: Chief Complaint: Right breast infection This is a pleasant 57-year-old English-speaking patient is originally from [place]. Patient otherwise has no medical history. Patient had bilateral silicone breast implants to 15 years ago. Last when she went down to [place] to have silicone replacement in the right breast. Then she started developing increasing pain in the right breast. Describes some fever and chills at home. Brought in for the same. Ultrasound of the breast questionable abscess versus seroma. Appetite fair. July 28: Patient getting IV Dilaudid. Using warm and cold compress on the r ight breast. Some drainage. Remains on IV Unasyn. Does not like hospital food. Being followed by Dr. Yvan nguyễn. July 29: Patient is getting pain medications were right breast pain. She she tells the pain is better. Still having significant drainage in the gauze. Able to squeeze the area better. Patient seen in the presence of the nurse. No fever no chills. Does not like hospital food. No bowel movement. Metamucil. Lactulose. Patient encouraged to walk in the hallway. Discussed with surgery: Patient to follow-up with plastic surgeon, Dr. Acosta July 30: She'll having some discharge from the breast site. Dr. Laureen nguyễn has spoken to Dr. Acosta. He wants the patient to follow-up with her own surgeon. I spoke to the patient. She will make an appointment to see her surgeon in [place]. No fever no chills. Told to return to the ER if fever or chills or worsening abscess symptoms. Patient expresses understanding this was present. I also spoke to Dr. Yvan nguyễn on the phone. Past medical history to include: Colonic diverticulosis. Abdominal wall hernia repair. Breast reduction surgery followed by bilateral implants. Social history: . 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 Conjunctiva normal. HEENT: External appearance of nose and ears normal, oral cavity grossly normal. NECK: JVD not raised; masses not palpable. HEART: First and second heart sounds are normal; no edema. LUNGS: Respiratory rate normal; clear to auscultation. ABDOMEN: Soft, nontender, liver spleen not palpable, no masses palpable. PSYCH: Alert and oriented x3; mood and affect normal. MUSCULOSKELETAL:No Clubbing/cyanosis;muscles-grossly intact Right breast: Improved Tender and swelling the inferior quadrant INVESTIGATIONS, reviewed in the clinical context: July 30: White count 3.4 hemoglobin 12 potassium 3.7 July 28: White count 3.05 hemoglobin 11.6 platelets 226and 3.2 creatinine 0.4 White count 3.4 hemoglobin 14.1 platelets 281 potassium 3.7 creatinine 0.43 Right breast ultrasound: Seroma versus a small abscess inferiorly Assessment and plan: -Right breast infection seroma versus abscess in a patient who recently had a silicone implant replaced in [place]. Dr. Gill nguyễn discussed with the patient about a possible needle aspiration. Due to the risk of losing the implant patient does not want the same.: Lately improved IV Unasyn. Pain control Follow with Dr. Yvan schulz to [place] tomorrow Patient to follow up with her own plastic surgeon in [place]. Next week Augmentin 875 one tablet twice a day for 10 days Naproxen finding inflammatory affect -Mild leukopenia likely from infection Disposition: Home Plan - Discharge Summary Discharge Rx Participant: No New Discharge Prescriptions: New Amoxic-Pot Clav 875-125Mg [Augmentin 875-125] 1 tab PO Q12HR #20 tab Acetaminophen Tab [Tylenol] 650 mg PO Q6HR PRN tab PRN Reason: Mild Pain Or Fever > 100.5 Naproxen [Naprosyn] 250 mg PO TID #42 tab Discharge Medication List Acetaminophen Tab [Tylenol] 650 mg PO Q6HR PRN tab 07/30/23 [Rx] Amoxic-Pot Clav 875-125Mg [Augmentin 875-125] 1 tab PO Q12HR #20 tab 07/30/23 [Rx] Naproxen [Naprosyn] 250 mg PO TID #42 tab 07/30/23 [Rx] Follow up Appointment(s)/Referral(s): Danial Ho MD [Primary Care Provider] - 1-2 days Patient Instructions/Handouts: Wound Infection (DC) Activity/Diet/Wound Care/Special Instructions: Please video chat or see a plastic surgeon to discuss further care and possible I&D Discharge Disposition: HOME SELF-CARE
== END 2023-07-30 18:00 | disposition home or self-care (01) | DRG 863 ==
LOC: EC 19:38 → 6NMEDSUR 07-27 00:31 → OBSVTOIN 07-27 11:37
PROVIDERS: ADMIT Hospitalist; ATTEND Hospitalist
DX: T81.49XA Infection following a procedure, other surgical site, initial encounter (principal); L76.32 Postprocedural hematoma of skin and subcutaneous tissue following other procedure; K57.30 Diverticulosis of large intestine without perforation or abscess without bleeding; Y84.8 Other medical procedures as the cause of abnormal reaction of the patient, or of later complication, without mention of misadventure at the time of the procedure; N61.1 Abscess of the breast and nipple; D72.819 Decreased white blood cell count, unspecified; Z90.710 Acquired absence of both cervix and uterus; Z87.19 Personal history of other diseases of the digestive system; K57.90 Diverticulosis of intestine, part unspecified, without perforation or abscess without bleeding
CPT/HCPCS: 36415; 80048; 80053; 83605; 83735; 84100; 84145; 85025; 87040; 87070; 87205; 96361; 96365; 96367; 96375; 99285

== ENCOUNTER 2023-11-03 21:55 | Inpatient (IN) | payer BC ==
[2023-11-03] MEDS ORDERED: NALOXONE 0.4 MG/ML 1 ML VIAL IV PRN (22:40)
--- NOTE | 2023-11-03 22:40 | ED ---
General Adult HPI - General Chief complaint: Abdominal Pain Stated complaint: BOWEL OBSTRUCTION Time Seen by Provider: 11/03/23 22:03 Source: patient, EMS, RN notes reviewed, old records reviewed Mode of arrival: EMS Limitations: language barrier - History of Present Illness Initial comments: Patient is a 58-year-old female who presents as a transfer from [facility] for small bowel obstruction. Patient has a history of diverticulitis/diverticulosis, hysterectomy, . States she had abdominal pain that began earlier today with vomiting. Endorses it is a cramping, twisting with multiple episodes of vomiting throughout the day. Last had a bowel movement yesterday but states it may have been last. Has not been having any bowel movements or flatus throughout the day today. Denies any chest pain or shortness of breath. Denies any fevers. No urinary complaints. Presented to [facility] where they diagnosed the patient with mild hypokalemia as well as a small bowel obstruction. Labs otherwise were within acceptable limits. Patient was given analgesia medications, Zofran and transferred here for evaluation by surgery. Nausea is improved at this time with some pain. NG tube was not initiated. Presents for further evaluation at this time. - Related Data Home Medications Medication Instructions Recorded Confirmed No Known Home Medications 11/03/23 11/03/23 Allergies Allergy/AdvReac Type Severity Reaction Status Date / Time No Known Allergies Allergy Verified 11/03/23 22:27 Review of Systems ROS Statement: Those systems with pertinent positive or pertinent negative responses have been documented in the HPI. Review of Systems: CONST: Denies fever EYES: Denies blurry vision ENT: Denies nasal congestion C/V: Denies Chest pain RESP: Denies shortness of breath GI: Endorses abdominal pain : Denies dysuria SKIN: Denies rash. MSK: Denies joint pain. NEURO: Denies headache ROS Other: All systems not noted in ROS Statement are negative. Past Medical History Past Medical History: No Reported History Additional Past Medical History / Comment(s): Diverticulosis. ABNORMAL PAP SMEAR History of Any Multi-Drug Resistant Organisms: None Reported Past Surgical History: Breast Surgery, Section, Hysterectomy Additional Past Surgical History / Comment(s): Past OB history: 3 vaginal deliveries followed by 2 sections. Breast reduction surgery followed by bilateral implants. Some type of abdominal surgery for intestines protruding through the abdominal wall(?hernia) later followed by an abdominoplasty. Supracervical hysterectomy for benign reasons in 2013. Past Anesthesia/Blood Transfusion Reactions: No Reported Reaction Past Psychological History: No Psychological Hx Reported Smoking Status: Former smoker Past Alcohol Use History: None Reported Past Drug Use History: None Reported - Past Family History Mother Family Medical History: No Reported History Additional Family Medical History / Comment(s): She denies family history of cancer of the breast, uterus, ovaries, or colon. Father Family Medical History: Unable to Obtain General Exam - General Exam Comments Initial Comments: General: Appears in mild to moderate distress secondary to abdominal pain. HEAD: Normal with no signs of head trauma. EYES: PERRLA, EOMI, conjunctiva normal, no discharge. ENT: Hearing grossly intact, normal oropharynx. RESPIRATORY: Clear breath sounds bilaterally. No wheezes, rales, or rhonchi. C/V: Regular rate and rhythm. S1 and S2 auscultated, no edema, peripheral pulses 2+ and intact throughout ABD: Abd is soft, mildly distended. Tender to palpation diffusely. No guarding. No rebound tenderness. No peritoneal signs. EXT: Normal range of motion, no obvious deformity SKIN: No rashes or lesions observed on exposed skin. NEURO: Alert and oriented x 4. Limitations: language barrier Course Vital Signs 11/03/23 21:57 Temperature 98.1 F Pulse Rate 66 Respiratory 18 Rate Blood Pressure 124/84 O2 Sat by Pulse 97 Oximetry Medical Decision Making - Medical Decision Making Was pt. sent in by a medical professional or institution (, PA, ECONOMIC ADVISER, urgent care, hospital, or fpc...) When possible be specific @ -No Did you speak to anyone other than the patient for history (EMS, parent, family, police, friend...)? What history was obtained from this source @ -No Did you review nursing and triage notes (agree or disagree)? Why? @ -I reviewed and agree with nursing and triage notes Were old charts reviewed (outside hosp., previous admission, EMS record, old EKG, old radiological studies, urgent care reports/EKG's, fpc records)? Report findings @ -Old charts reviewed. Differential Diagnosis (chest pain, altered mental status, abdominal pain women, abdominal pain men, vaginal bleeding, weakness, fever, dyspnea, syncope, headache, dizziness, GI bleed, back pain, seizure, CVA, palpatations, mental health, musculoskeletal)? @ -Differential Abdominal Pain Women: Appendicitis, Cholecystitis, diverticulosis, ischemic bowel, pancreatitis, hepatitis, UTI, gastroenteritis, AAA, incarcerated hernia, bowel obstruction, constipation, inflammatory bowel, hepatitis, peptic ulcer disease, splenic infarction, perforated viscus, vulvitis, ovarian torsion, PID, kidney stone, placenta abruption, this is not meant to be an all-inclusive list EKG interpreted by me (3pts min.). @ -None done X-rays interpreted by me (1pt min.). @ -None done CT interpreted by me (1pt min.). @ -None done. Imaging completed at outside facility. U/S interpreted by me (1pt. min.). @ -None done What testing was considered but not performed or refused? (CT, X-rays, U/S, labs)? Why? @ -None What meds were considered but not given or refused? Why? @ -None Did you discuss the management of the patient with other professionals (professionals i.e. , PA, ECONOMIC ADVISER, lab, RT, psych nurse, social work supervisor, ip counsel, teacher, first aid officer, case work aide)? Give summary @ -I spoke with Dr. Huynh of on-call surgery who was in agreement with the plan and accepted the patient as a consult but requested patient be made a medicine admission. I spoke with Dr. Waddell who accepted the patient as a medicine admission. Surgery will be consulted. Was smoking cessation discussed for >3mins.? @ -No Was critical care preformed (if so, how long)? @ -No Were there social determinants of health that impacted care today? How? (Homelessness, low income, unemployed, alcoholism, drug addiction, transportation, low edu. Level, literacy, decrease access to med. care, assisted, rehab)? @ -No Was there de-escalation of care discussed even if they declined (Discuss DNR or withdrawal of care, Hospice)? DNR status @ -No What co-morbidities impacted this encounter? (DM, HTN, Smoking, COPD, CAD, Cancer, CVA, ARF, Chemo, Hep., AIDS, mental health diagnosis, sleep apnea, morbid obesity)? @ -None Was patient admitted / discharged? Hospital course, mention meds given and route, prescriptions, significant lab abnormalities, going to OR and other pertinent info. @ -Based on the patient's presentation and physical exam, presents as a transfer for small bowel obstruction. Imaging will be uploaded. Labs were reviewed and were remarkable for mild hypokalemia however we will obtain repeat labs while here. She will be empirically started on Zosyn, made n.p.o., put on maintenance IV fluids, as well as be placed on as needed nausea medications and pain medications. She will be given a nasogastric tube as well as she has had multiple episodes of emesis. She was in agreement this plan. I spoke with the on-call surgeon Dr. Huynh who accepted the patient and was in agreement the plan however requested patient be made a medicine admission. I spoke with Dr. Waddell who accepted the patient as a medicine admission. Undiagnosed new problem with uncertain prognosis? @ -No Drug Therapy requiring intensive monitoring for toxicity (Heparin, Nitro, Insulin, Cardizem)? @ -No Were any procedures done? @ -No Diagnosis/symptom? @ -Small bowel obstruction Acute, or Chronic, or Acute on Chronic? @ -Acute Uncomplicated (without systemic symptoms) or Complicated (systemic symptoms)? @ -Complicated Side effects of treatment? @ -No Exacerbation, Progression, or Severe Exacerbation? @ -No Poses a threat to life or bodily function? How? (Chest pain, USA, MA, pneumonia, PE, COPD, DKA, ARF, appy, cholecystitis, CVA, Diverticulitis, Homicidal, Suicidal, threat to staff... and all critical care pts) @ -Yes Disposition Clinical Impression: Small bowel obstruction Disposition: ADMITTED IP TO THIS HOSP Condition: Stable Referrals: Danial Ho MD [Primary Care Provider] - 1-2 days Time of Disposition: 22:40
[2023-11-03] MEDS: ONDANSETRON 4 MG/2 ML VIAL IVP PRN (23:00)
[2023-11-03] MEDS: PIPERACILLIN-TAZOBACTAM 3.375 GM in SODIUM CHLORIDE 0.9% 100 ML IVPB STA (23:00)
[2023-11-03] MEDS: SODIUM CHLORIDE 0.9% 1,000 ML IV STA (23:00)
[2023-11-03] MEDS: MORPHINE SULFATE 4 MG/ML SYRINGE IVP STA (23:00)
[2023-11-03 23:16] LABS: Basophils % (A) 0 %; Eosinophils % (A) 0 %; HGB 12.1 gm/dL (11.4-16.0); Lymphocytes % (A) 19 %; MCH 31.4 pg (25.0-35.0); MCHC 34.7 g/dL (31.0-37.0); MCV 90.5 fL (80.0-100.0); Mean Platelet Volume 7.5; Monocytes # (A) 0.2 k/uL (0-1.0); Monocytes % (A) 4 %; Neutrophils # (A) 4.1 k/uL (1.3-7.7); Neutrophils % (A) 76 %; Platelet Count 209 k/uL (150-450); RBC 3.87 m/uL (3.80-5.40); RDW 13.1 % (11.5-15.5); WBC 5.4 k/uL (3.8-10.6)
[2023-11-03 23:28] LABS: ALT 17 U/L (4-34); AST 25 U/L (14-36); African American GFR (CKD) >90 (>60 ml/min/1.73 sqM); Albumin 3.6 g/dL (3.5-5.0); Alkaline Phosphatase 67 U/L (38-126); Anion Gap 8 mmol/L; Blood Urea Nitrogen 22 mg/dL (7-17); Carbon Dioxide 21 mmol/L (22-30); Chloride 112 mmol/L (98-107); Glucose 118 mg/dL (74-99); Non-African American GFR(CKD) >90 (>60 ml/min/1.73 sqM); Potassium 3.4 mmol/L (3.5-5.1); Sodium 141 mmol/L (137-145); Total Bilirubin 0.4 mg/dL (0.2-1.3); Total Protein 6.9 g/dL (6.3-8.2)
[2023-11-03 23:39] LABS: Prothrombin Time 11.2 sec (10.0-12.5)
[2023-11-03 23:49] LABS: Partial Thromboplastin Time 21.1 sec (22.0-30.0)
--- NOTE | 2023-11-04 00:43 | XR ---
EXAM: XR Chest, 1 View CLINICAL HISTORY: ITS.REASON XR Reason: Confirm NG tube placement TECHNIQUE: Frontal view of the chest. COMPARISON: No relevant prior studies available. FINDINGS: Lungs: small amount of bibasilar atelectasis. Right lung is slightly underinflated. Pleural space: Unremarkable. Mediastinum: Unremarkable. Normal mediastinal contour. Bones/joints: No acute findings. Tubes, lines and devices: Tip of NG tube is in body of stomach. IMPRESSION: Tip of NG tube is in body of stomach.
[2023-11-04] MEDS: MORPHINE SULFATE 4 MG/ML SYRINGE IV PRN (02:40)
[2023-11-04] MEDS: PIPERACILLIN-TAZOBACTAM 3.375 GM in SODIUM CHLORIDE 0.9% 100 ML IVPB SCH (08:36)
[2023-11-04] MEDS: POTASSIUM CHLORIDE ER 20 MEQ TAB.ER PO STA (09:39)
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
[2023-11-04 11:53] LABS: African American GFR (CKD) >90 (>60 ml/min/1.73 sqM); Anion Gap 5 mmol/L; Blood Urea Nitrogen 16 mg/dL (7-17); Calcium 8.4 mg/dL (8.4-10.2); Carbon Dioxide 25 mmol/L (22-30); Chloride 110 mmol/L (98-107); Glucose 94 mg/dL (74-99); Non-African American GFR(CKD) >90 (>60 ml/min/1.73 sqM); Potassium 3.1 mmol/L (3.5-5.1); Sodium 140 mmol/L (137-145)
[2023-11-04 11:59] LABS: Basophils % (A) 0 %; Eosinophils % (A) 1 %; HCT 35.6 % (34.0-46.0); HGB 11.9 gm/dL (11.4-16.0); Lymphocytes # (A) 1.1 k/uL (1.0-4.8); Lymphocytes % (A) 31 %; MCH 30.6 pg (25.0-35.0); MCHC 33.3 g/dL (31.0-37.0); MCV 91.9 fL (80.0-100.0); Mean Platelet Volume 7.9; Monocytes # (A) 0.3 k/uL (0-1.0); Monocytes % (A) 9 %; Neutrophils # (A) 2.1 k/uL (1.3-7.7); Neutrophils % (A) 57 %; Platelet Count 203 k/uL (150-450); RBC 3.88 m/uL (3.80-5.40); RDW 13.3 % (11.5-15.5); WBC 3.7 k/uL (3.8-10.6)
[2023-11-04] MEDS: HYDROmorphone 1 MG/ML 1 ML SYRINGE IVP PRN (12:55)
[2023-11-04] MEDS: SODIUM CHLORIDE 0.9% 1,000 ML IV SCH (12:58)
[2023-11-04] MEDS: ONDANSETRON 4 MG/2 ML VIAL IVP STA (13:53)
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
--- NOTE | 2023-11-04 15:23 | XR ---
Upright portable abdomen. DATE: 11/04/2023. COMPARISON: None available. CLINICAL HISTORY: NG tube placement. IMPRESSION: NG tube is not seen on this examination. The majority of the chest is included to the level of the ao rtic arch where the lungs appear clear in this location. NG tube is also not seen within the region o f the visualized esophagus. Partially visualized upper abdomen shows dilated loops of small bowel suggestive of obstruction.
--- NOTE | 2023-11-04 15:33 | XR ---
EXAMINATION TYPE: XR chest 1V portable DATE OF EXAM: 11/04/2023 Comparison: 11/03/2023 Clinical History: 58-year-old female NG tube placement Findings: NG tube courses below the diaphragm. Heart borderline enlarged. Mild interstitial prominence. Possibl e trace right effusion versus patchy opacity/atelectasis. Some nonspecific uptake hyperdense material projecting at the right hilum. Impression: 1. Satisfactory NG tube. 2. Similar interstitial density and patchy right basilar opacity/trace effusion.
[2023-11-04] MEDS: ENOXAPARIN 40 MG/0.4 ML SYRINGE SQ SCH (17:14)
[2023-11-04] MEDS: LACTATED RINGERS 1,000 ML IV SCH (18:19)
[2023-11-04] MEDS: ZOLPIDEM 5 MG TAB PO PRN (21:54)
[2023-11-05 06:42] LABS: African American GFR (CKD) >90 (>60 ml/min/1.73 sqM); Anion Gap 4 mmol/L; Blood Urea Nitrogen 14 mg/dL (7-17); Calcium 8.5 mg/dL (8.4-10.2); Carbon Dioxide 31 mmol/L (22-30); Chloride 103 mmol/L (98-107); Glucose 87 mg/dL (74-99); Non-African American GFR(CKD) >90 (>60 ml/min/1.73 sqM); Sodium 138 mmol/L (137-145)
--- NOTE | 2023-11-05 07:16 | XR ---
EXAMINATION TYPE: XR abdomen 2V DATE OF EXAM: 11/05/2023 CLINICAL HISTORY: Small bowel obstruction TECHNIQUE: Supine and upright views of the abdomen are obtained. COMPARISON: Abdominal x-ray one day earlier and outside older CT 2 days earlier.. FINDINGS: There is new nasogastric tube projecting below the diaphragm. Gas is seen in slightly promi nent stomach similar to prior. Some scattered gas seen in slightly prominent and in nondistended smal l and large bowel loops throughout the abdomen and pelvis. Punctate densities over fragments project over the right pelvis similar to prior CT. No free air is seen. Lung bases remain clear. IMPRESSION: There is new Nasogastric tube present. Overall nonspecific bowel gas pattern redemonstrat ed.
[2023-11-05 07:40] LABS: Potassium 2.6 mmol/L (3.5-5.1)
[2023-11-05 07:46] LABS: Glucose,Whole Blood 87 mg/dL (70-110)
[2023-11-05] MEDS ORDERED: Potassium Replacement Protocol 1 EACH MISC MISCELLANE PRN (07:49)
[2023-11-05] MEDS: POTASSIUM CHLORIDE 20 MEQ in WATER FOR INJECTION 1 100ML.BAG IVPB SCH (08:23)
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
[2023-11-05 11:46] LABS: Glucose,Whole Blood 97 mg/dL (70-110)
[2023-11-05] MEDS: POTASSIUM CHLORIDE ER 20 MEQ TAB.ER PO STA (12:57)
--- NOTE | 2023-11-05 13:25 | FL ---
EXAMINATION TYPE: FL small bowel follow through DATE OF EXAM: 11/05/2023 1:12 PM COMPARISON: CT abdomen pelvis most recent from 11/03/2023 INDICATION: Patient age:Female; 58 years old; Reason for study: evaluate for SBO; TECHNIQUE: The procedure was explained and patient history elicited. All patient questions were ans wered prior to start of procedure. A internet assessor radiograph of the abdomen was also reviewed. The patient was asked to ingest liquid Gastrografin and incremental frontal abdominal radiographs were then taken until contrast was visualized in the cecum. Fluoroscopic images: 0 Radiographs taken: 5 DAP: None [id number] FINDINGS: The internet assessor abdominal radiograph demonstrates a normal bowel gas pattern without dilated loops of small or large bowel. There is no evidence of organomegaly or pneumoperitoneum. No abnormal calcifications . The visualized osseous structures are intact. Contrast is seen extending from the duodenojejunal junction into the cecum after 3 hours 30 minutes , which is slightly delayed . The small bowel follows normal distribution and contour without any micheal dence of extraluminal or intraluminal irregularity. There is no displacement of bowel loops or extra luminal extravasation of contrast material. Small bowel mucosal folds are felt to be within normal li mits. IMPRESSION: Mildly delayed small bowel follow-through possibly relating to ileus or partial bowel obstruction. Or al contrast extends to the colon.
[2023-11-05 17:22] LABS: Glucose,Whole Blood 74 mg/dL (70-110)
--- NOTE | 2023-11-05 22:37 | P.PN ---
Subjective Progress Note Date: 11/05/23 58-year-old Austrian-speaking patient is originally from [place]. bilateral silicone breast implants to 15 years ago. Otherwise in good health. Patient was here in July 2023. Patient had then just returned from [place] after right breast silicon replacement. And had developed a infection. That time she did not want any surgical intervention. Discharged home on antibiotics. Yesterday patient around the afternoon started having increasing abdominal pain. Severe nausea. Went down to [facility]. Subsequently had vomiting. She was diagnosed with a small bowel obstruction. And then transferred here. This morning patient has an NG tube to suction. Last bowel movement was the day before. Denies any fever and chills. Patient's at the bedside. Objective - Vital Signs Vital signs: Vital Signs Temp 97.6 F 11/05/23 11:48 Pulse 65 11/05/23 11:48 Resp 17 11/05/23 11:48 BP 125/79 11/05/23 11:48 Pulse Ox 96 11/05/23 11:48 FiO2 Intake & Output 11/04/23 11/05/23 11/05/23 18:59 06:59 18:59 Intake Total 125 Output Total 700 Balance 125 -700 Weight 58.967 kg Intake: Intake, IV Titration 125 Amount Piperacillin-Tazobactam 3 125 .375 gm In Sodium Chloride 0.9% 100 ml @ 25 mls/hr IVPB Q8HR [facility] Rx# :[id number] Output: Gastric Drainage 700 Other: # Voids 1 - Exam GENERAL: Sitting up in bed, uncomfortable EYES: Pupils equal. Conjunctiva normal. HEENT: External appearance of nose and ears normal, oral cavity grossly normal. NG tube NECK: JVD not raised; masses not palpable. HEART: First and second heart sounds are normal; no edema. LUNGS: Respiratory rate normal; clear to auscultation. ABDOMEN: Soft, some tenderness. Some lower abdominal distention., liver spleen not palpable, no masses palpable. PSYCH: Alert and oriented x3; mood and affect anxious MUSCULOSKELETAL:No Clubbing/cyanosis;muscles-grossly intact - Labs CBC & Chem 7: 11/04/23 11:05 11/05/23 18:46 Labs: Abnormal Lab Results - Last 24 Hours (Table) 11/05/23 Range/Units 05:51 Potassium 2.6 L* (3.5-5.1) mmol/L Carbon Dioxide 31 H (22-30) mmol/L Creatinine 0.43 L (0.52-1.04) mg/dL Microbiology - Last 24 Hours (Table) 11/03/23 22:55 Blood Culture - Preliminary Blood 11/03/23 22:40 Blood Culture - Preliminary Blood Assessment and Plan Assessment: -Acute small bowel obstruction. Accompanied by increasing abdominal pain nausea vomiting. No fever no chills. NG tube to suction. NPO -Clinical dehydration Lactated Ringer's -Hypokalemia Normal saline to lactated Ringer's -Hyperchloremia Change normal saline to LR
[2023-11-05 23:43] LABS: Glucose,Whole Blood 73 mg/dL (70-110)
[2023-11-06 05:44] LABS: Glucose,Whole Blood 83 mg/dL (70-110)
[2023-11-06] MEDS: POTASSIUM CHLORIDE ER 20 MEQ TAB.ER PO SCH ×3 (08:18→20:14)
--- NOTE | 2023-11-06 09:27 | P.PN ---
Subjective Progress Note Date: 11/06/23 Patient feels better. Her pain is improved. She has had a bowel movement. On exam vital signs appear stable. Abdomen soft. Resolving small bowel obstruction. Patient was started on full liquid diet. Objective - Vital Signs Vital signs: Vital Signs Temp 98.3 F 11/06/23 07:22 Pulse 77 11/06/23 07:22 Resp 16 11/06/23 07:22 BP 124/83 11/06/23 07:22 Pulse Ox 95 11/06/23 07:22 FiO2 Intake & Output 11/05/23 11/06/23 11/06/23 18:59 06:59 18:59 Intake Total 240 Output Total 600 Balance -360 Intake: Oral 240 Output: Gastric Drainage 600 Other: # Voids 1 - Labs CBC & Chem 7: 11/04/23 11:05 11/05/23 18:46 Labs: Abnormal Lab Results - Last 24 Hours (Table) 11/05/23 Range/Units 18:46 Potassium 2.9 L (3.5-5.1) mmol/L Microbiology - Last 24 Hours (Table) 11/03/23 22:55 Blood Culture - Preliminary Blood 11/03/23 22:40 Blood Culture - Preliminary Blood
[2023-11-06 09:50] LABS: Basophils # (A) 0.02 X 10*3/uL (0.00-0.10); Basophils % (A) 0.5 %; Eosinophils # (A) 0.03 X 10*3/uL (0.04-0.35); Eosinophils % (A) 0.7 %; HCT 34.4 % (37.2-46.3); Lymphocytes # (A) 1.63 X 10*3/uL (0.90-5.00); Lymphocytes % (A) 39.6 %; MCH 31.3 pg (27.0-32.0); MCHC 34.9 g/dL (32.0-37.0); MCV 89.8 FL (80.0-97.0); Mean Platelet Volume 10.1 FL (9.5-12.2); Monocytes # (A) 0.38 X 10*3/uL (0.20-1.00); Monocytes % (A) 9.2 %; NRBC Per 100 WBC 0 X 10*3/uL (0.00-0.01); Neutrophils # (A) 2.05 X 10*3/uL (1.80-7.70); Neutrophils % (A) 49.8 %; Platelet Count 158 X 10*3/uL (140-440); RBC 3.83 X 10*6/uL (4.10-5.20); RDW 13.1 % (11.5-14.5); WBC 4.12 X 10*3/uL (4.50-10.00)
[2023-11-06 11:00] LABS: Blood Urea Nitrogen 11.9 mg/dL (9.0-27.0); Calcium 8.6 mg/dL (8.7-10.3); Carbon Dioxide 32.5 mmol/L (21.6-31.8); Chloride 97 mmol/L (96-109); Glucose 83 mg/dL (70-110); Potassium 2.8 mmol/L (3.5-5.5); Sodium 139 mmol/L (135-145)
[2023-11-06] MEDS ORDERED: POTASSIUM CHLORIDE ER 20 MEQ TAB.ER PO SCH (14:00)
[2023-11-07 03:33] LABS: African American GFR (CKD) >90 (>60 ml/min/1.73 sqM); Anion Gap 2 mmol/L; Blood Urea Nitrogen 7 mg/dL (7-17); Calcium 8.4 mg/dL (8.4-10.2); Carbon Dioxide 31 mmol/L (22-30); Chloride 102 mmol/L (98-107); Glucose 92 mg/dL (74-99); Non-African American GFR(CKD) >90 (>60 ml/min/1.73 sqM); Potassium 3.3 mmol/L (3.5-5.1); Sodium 135 mmol/L (137-145)
[2023-11-07] MEDS: POTASSIUM CHLORIDE ER 20 MEQ TAB.ER PO SCH (03:44)
[2023-11-07 08:01] VITALS: RESP 16; TEMP 98.4
--- NOTE | 2023-11-07 13:47 | P.PN ---
Subjective Progress Note Date: 11/07/23 CHIEF COMPLAINT: Small bowel obstruction HISTORY OF PRESENT ILLNESS: Patient is tolerating full liquid diet. She did have a bowel movement and flatus. Denies any nausea or vomiting. Pain is improved. Afebrile. Potassium low at 3.3 and being replaced. PHYSICAL EXAM: VITAL SIGNS: Reviewed. GENERAL: Well-developed in no acute distress. ABDOMEN: Soft. Nondistended. Nontender. NEUROLOGIC: Alert and oriented. Cranial nerves II through XII grossly intact. ASSESSMENT: 1. Resolving small bowel obstruction PLAN: -Advance diet to low fiber -Patient can be discharged from surgical standpoint when medically cleared Physician Car Knocker note has been reviewed by physician. Signing provider agrees with the documented findings, assessment, and plan of care. Objective - Vital Signs Vital signs: Vital Signs Temp 98.4 F 11/07/23 07:04 Pulse 60 11/07/23 07:04 Resp 16 11/07/23 07:04 BP 116/78 11/07/23 07:04 Pulse Ox 97 11/07/23 07:04 FiO2 Intake & Output 11/06/23 11/07/23 11/07/23 18:59 06:59 18:59 Intake Total 200 Balance 200 Intake: Intake, IV Titration 200 Amount Piperacillin-Tazobactam 3 200 .375 gm In Sodium Chloride 0.9% 100 ml @ 25 mls/hr IVPB Q8HR [facility] Rx# :[id number] Other: Voiding Method Toilet # Voids 5 1 # Bowel Movements 1 0 - Labs CBC & Chem 7: 11/06/23 05:22 11/07/23 07:00 Labs: Abnormal Lab Results - Last 24 Hours (Table) 11/06/23 11/07/23 Range/Units 15:12 03:09 Sodium 135 L (137-145) mmol/L Potassium 3.0 L 3.3 L (3.5-5.1) mmol/L Carbon Dioxide 31 H (22-30) mmol/L Creatinine 0.35 L (0.52-1.04) mg/dL Microbiology - Last 24 Hours (Table) 11/03/23 22:55 Blood Culture - Preliminary Blood 11/03/23 22:40 Blood Culture - Preliminary Blood
[2023-11-07 16:15] VITALS: BP 130/86; PULSE 72
== END 2023-11-07 17:20 | disposition home or self-care (01) | DRG 390 ==
LOC: EC 21:55 → 4SSUR 22:42 → 5NMEDONC 11-04 17:34
PROVIDERS: ADMIT Hospitalist; ATTEND Hospitalist
PROC: 0D9670Z Drainage of Stomach with Drainage Device, Via Natural or Artificial Opening (ICD-10-PCS; principal; 2023-11-03)
DX: K56.609 Unspecified intestinal obstruction, unspecified as to partial versus complete obstruction (principal); E87.6 Hypokalemia; E86.0 Dehydration; E87.8 Other disorders of electrolyte and fluid balance, not elsewhere classified; E78.00 Pure hypercholesterolemia, unspecified; R11.2 Nausea with vomiting, unspecified; K57.90 Diverticulosis of intestine, part unspecified, without perforation or abscess without bleeding; Z90.711 Acquired absence of uterus with remaining cervical stump; Z98.82 Breast implant status; Z90.710 Acquired absence of both cervix and uterus
CPT/HCPCS: 71045; 74018; 74019; 74250; 80048; 80053; 83735; 84132; 85025; 85610; 85730; 87040; 96361; 96365; 96366; 96367; 96372; 96375; 96376; 99285